=== PATIENT | female | born 1985 | race Caucasian/White ===

== ENCOUNTER 2024-01-28 08:30 | Day surgery (SDC) | payer BC ==
--- NOTE | 2024-01-28 08:28 | HP ---
HISTORY OF PRESENT ILLNESS: The patient has had some epigastric pain and some loose stools at times. No prior colonoscopy. Had a Liya-en-Y in [place]. Took out part of the top of the fundus, according to the patient, 2 years ago in which she lost 130 pounds. PAST MEDICAL HISTORY: Hypertension, reflux, loose stools, had gastric bypass in 2021 in [place], hypothyroidism, history of atrial fibrillation in the past, depression. PAST SURGICAL HISTORY: Gastric bypass in [place], had in the past, had cholecystectomy in the past. FAMILY HISTORY: Heart disease. Negative for colon cancer or other cancers in the past. History of depression, fibromyalgia, and glaucoma in the family. SOCIAL HISTORY: No smoking. Occasional alcohol use. MEDICATIONS: Magnesium, potassium chloride, Eliquis, fluoxetine, Pepcid, levothyroxine, vitamin B12, cyanocobalamin, metoprolol. ALLERGIES: No known drug allergies. REVIEW OF SYSTEMS: Twelve systems reviewed. No chest pain or palpitations. Other systems negative or noncontributory as above and per preadmission questionnaire. PHYSICAL EXAMINATION: VITAL SIGNS: Height 5 feet 6 inches. BMI 23.4. HEENT: Sclerae nonicteric. Extraocular movements intact. NECK: No JVD. CHEST: Equal excursion, nonlabored breathing. CARDIOVASCULAR: Regular rate and rhythm. ABDOMEN: Soft. Mild epigastric tenderness. EXTREMITIES: No cyanosis or edema. NEUROLOGIC: Alert and oriented, moving all extremities symmetrically. PSYCHIATRIC: Appropriate mood and affect. SKIN: Dry. IMPRESSION: Epigastric burning, history of bypass surgery. Recommend EGD to evaluate for peptic ulcer disease, gastritis, other etiology, esophagitis, change in bowel habits. Recommend colonoscopy for evaluation. Risks explained in detail including but not limited to bleeding, infection, risk of bowel injury or perforation possibly requiring open procedure, risk of missed or nondiagnosis, risk of incomplete exam possibly requiring other procedures, referrals, or barium enema. We will need to hold blood thinners preop otherwise will proceed with EGD and colonoscopy as an outpatient. Continue medications for depression, reflux, hypothyroidism, hypertension.
[2024-01-28 08:41] LABS: HCG URINE TEST NEGATIVE (NEGATIVE)
[2024-01-28] MEDS ORDERED: Lactated Ringers 1,000 ML IV ONE (08:43)
[2024-01-28 08:49] VITALS: RESP 18; TEMP 97.8
[2024-01-28] MEDS: Lactated Ringers 1,000 ML IV SCH (08:50)
[2024-01-28 09:17] LABS: Hematocrit 35.2 % (34.1-44.9); Hemoglobin 11.2 g/dL (11.2-15.7); Mean Corpuscular Hemoglobin 26.7 pg (25.6-32.2); Mean Corpuscular Hgb Concent. 31.8 g/dL (32.2-35.5); Mean Platelet Volume 8.7 fL (9.4-12.3); Platelet Count 317 x10^3/uL (182-369); Red Blood Count 4.19 x10^6/uL (3.93-5.22); Red Cell Distribution Width 14.3 % (11.7-14.4); White Blood Count 2.6 x10^3/uL (3.98-10.04)
[2024-01-28 09:40] LABS: ALBUMIN 4.2 g/dL (3.5-5.0); BILIRUBIN,TOTAL 0.5 mg/dL (0.2-1.3); Calcium 8.9 mg/dL (8.4-10.2); Creatinine 1 0.64 mg/dL (0.52-1.04); EST GLOMERULAR FILTRATION RATE 115.9 ML/MIN; Potassium 3.8 mmol/L (3.5-5.1); Total Protein 6.8 g/dL (6.3-8.2)
[2024-01-28] MEDS ORDERED: DIPRIVAN 200 MG/20 ML IV ONE (10:31)
[2024-01-28] MEDS ORDERED: Versed 2 MG/2 ML Injection ONE (10:32)
[2024-01-28 11:43] VITALS: O2SAT 98
[2024-01-28 11:54] VITALS: BP 132/90; PULSE 61
--- NOTE | 2024-01-29 11:26 | OP ---
SURGERY DATE/TIME: 01/28/2024 1048 110 PREOPERATIVE DIAGNOSES: 1) History of bariatric bypass surgery in the past, epigastric burning and discomfort. 2) Change in bowel habits, need for upper and lower endoscopy. POSTOPERATIVE DIAGNOSES: 1) Superficial ulceration, jejunal side; gastrojejunal anastomosis. No active bleeding. 2) Very short segment and minimal inflammation, distal esophagus. 3) Fair but limited bowel prep. Otherwise, fairly unremarkable mucosa. PROCEDURES: 1) Esophagogastrojejunoscopy with cold biopsy of stomach to evaluate for H pylori; cold biopsy of distal esophagus to evaluate for mild early inflammation of distal esophagus, short segment. 2) Colonoscopy to cecum. Random cold biopsies of colon to evaluate microscopic colitis. SURGEON: Elton Lozada MD. ANESTHESIA: MAC. ESTIMATED BLOOD LOSS: Minimal. INDICATIONS: Consent was obtained. ASA class 3. WITHDRAWAL TIME: On the colon was 6 minutes and 30 seconds. DESCRIPTION OF PROCEDURE AND FINDINGS: Patient was taken to the endoscopy room. MAC anesthesia induced. After official time-out for planned procedure and no disagreement with planned procedure, bite block positioned. Videogastroscope easily passed down the esophagus through the gastrojejunal anastomosis. Normal limbs of the jejunal side. Just on the jejunal side of the gastrium there were a couple of superficial ulcerations. No active bleeding currently. The remainder of the jejunum further down was unremarkable. Cold biopsy was taken in the antrum to evaluate for histology or H pylori. Otherwise, scope pulled back to the GE junction. Very short segment, couple millimeters and minimal distal inflammation. Cold biopsy was taken for path. Good hemostasis noted. The remainder of the esophagus was unremarkable. Scope was withdrawn. Patient tolerated the procedure well. There was no immediate complication for this portion of the procedure. Attention was then turned to colonoscopy. Digital rectal exam did not reveal any rectal masses. She had some minimal internal hemorrhoids. Videocolonoscope inserted and passed up through the tortuous descending, transverse, ascending colon. With external pressure, the scope was passed through the cecum. Appendiceal orifice was not well visualized and photo documented. Prep overall was fair, on the limited side. No signs of any large polyps, masses, or obstructing lesions but again, the prep did limit the exam for a very small lesion. Scope was carefully withdrawn over the next 6 minutes and 30 seconds. We irrigated and suctioned as clear as possible. Random cold biopsy was taken because she had a change in bowel habits to evaluate for microscopic colitis, although there was no microscopic inflammation. Scope was carefully withdrawn. Patient tolerated the procedure well. There was no immediate complication. She did not have any family members that she wanted us to talk to at this time.
== END 2024-01-28 12:06 | disposition home or self-care (01) ==
LOC: SDC 08:30
PROVIDERS: ATTEND Surgery
DX: K25.9 Gastric ulcer, unspecified as acute or chronic, without hemorrhage or perforation (principal); R10.13 Epigastric pain; Z98.84 Bariatric surgery status; R19.4 Change in bowel habit; K20.90 Esophagitis, unspecified without bleeding
CPT/HCPCS: 36415; 80053; 81025; 85027; 93005; J2250; J2704